=== PATIENT | female | born 1995 | race Hispanic/Latino ===

== ENCOUNTER 2024-02-10 13:13 | Emergency (ER) | payer MEDICARE ==
[~2024-02-10] VITALS: Ht 165.1 cm; Wt 70.3 kg
[2024-02-10 13:43] VITALS: PULSE 84; RESP 16; TEMP 98.8; O2SAT 100
== END 2024-02-10 17:34 | disposition left against medical advice (07) ==
LOC: ER 13:22
DX: Z53.29 Procedure and treatment not carried out because of patient's decision for other reasons (principal); N89.8 Other specified noninflammatory disorders of vagina
CPT/HCPCS: 99282